=== PATIENT | female | born 1930 | race Caucasian/White ===

== ENCOUNTER 2017-02-03 06:44 | Emergency (ER) | payer MEDICARE ==
[~2017-02-03] VITALS: Ht 167.6 cm; Wt 77.3 kg
[~2017-02-03 06:44] MED LIST: ARIMIDEX1 MG PO; ASPIRIN 32325 MG/TAB PO; B-121000 MCG; CALCIUM 600 PLU1 TAB; CALCIUM 600600 M2; CENTRUM1 TAB; COLACE 100100 MG/CAP PO; COUMADIN 77.5 MG/TAB PO; COZAAR100 MG PO; FERROUS SU325 MG/TAB PO; FISH OIL1 IU; FOLIC ACID 40400 MCG PO; HYZAAR 25 MG-101 TAB; HYZAAR 25 MG-101 TAB PO; LEVOTHYROXINE; LORTAB 5/500 501 TAB; LOTRISONE CREAM15 GM; OMEGA 31000 MG PO; SYNTHROID 0.10.15 MG PO; SYNTHROID0.125 MG/T; TYLENOL 500MG500 MG PO; TYLENOL ARTHRI650 M1; ULTRAM 50MG TAB50 MG PO; VITAMIN B12500 MCG; VITAMIN C PUR1000 MG
[2017-02-03 06:52] VITALS: TEMP 97.5
[2017-02-03] MEDS ORDERED: VITAMINC1000TA PO (07:04)
[2017-02-03] MEDS ORDERED: MULTIPLE VITAMI1 CAP PO (07:04)
[2017-02-03] MEDS ORDERED: SYNTHROID0.2 MG/TAB PO (07:05)
[2017-02-03] MEDS ORDERED: LIPITOR20 MG PO (07:06)
[2017-02-03] MEDS ORDERED: B-12 100 MCG PO (07:07)
[2017-02-03 08:21] LABS: BASO # 0.1 (0.0-0.2); BASO % 0.6 % (0.0-2.0); EOS # 0.1 (0.0-0.7); EOS % 0.9 % (0-4.0); GRAN # 9.1 (1.4-6.5); GRAN % 83.4 % (42.2-75.2); HEMATOCRIT 41.3 % (37.0-47.0); HEMOGLOBIN 13.3 g/dl (12.5-16.0); MEAN CELL VOLUME 96 fl (80.0-100.0); MEAN CORPUSCULAR HEMOGLOBIN 31 pg (27.0-31.0); MEAN CORPUSCULAR HGB CONC 32 g/dl (33.0-37.0); MEAN PLATELET VOLUME 9.9 fl (7.4-10.4); MONO # 0.6 (0.1-0.6); MONO % 5.7 % (1.7-9.3); PLATELET COUNT 271 K/mm3 (130-400); RED BLOOD COUNT 4.32 M/mm3 (4.10-5.30); REDCELL DISTRIBUTION WIDTH-CV 14.3 % (11.5-14.5); WHITE BLOOD COUNT 10.9 K/mm3 (4.8-10.8)
[2017-02-03 08:37] LABS: PH 6 (5-8); SQUAMOUS EPITHELIAL 0-2 /hpf; URINE APPEARANCE Clear; URINE BACTERIA None Seen /hpf; URINE BILIRUBIN Negative (NEGATIVE); URINE BLOOD Negative (NEGATIVE); URINE COLOR Straw; URINE GLUCOSE Negative (NEGATIVE); URINE KETONE Negative (NEGATIVE); URINE UROBILINOGEN Negative (NEGATIVE)
[2017-02-03 08:54] LABS: ADJUSTED CALCIUM 9.7 mg/dL (8.4-10.2); ALANINE AMINOTRANSFERASE 37 U/L (9-52); ALBUMIN 3.7 gm/dL (3.5-5.0); ALKALINE PHOSPHATASE 130 U/L (50-136); ANION GAP 9 mmol/L (7-16); BILIRUBIN,TOTAL 0.8 mg/dL (0.0-1.0); BLOOD UREA NITROGEN 17 mg/dL (7-17); CALCIUM 9.5 mg/dL (8.4-10.2); CARBON DIOXIDE 30 mmol/L (22-30); CHLORIDE 101 mmol/L (98-107); GLUCOSE 98 mg/dL (74-106); POTASSIUM 4.1 mmol/L (3.4-5.0); SODIUM 140 mmol/L (137-145)
[2017-02-03 08:59] LABS: TROPONIN-I < 0.012 ng/mL (0.000-0.034)
[2017-02-03 10:59] VITALS: BP 142/63; PULSE 74
== END 2017-02-03 10:59 | disposition home or self-care (01) ==
LOC: COL.ER 06:44
PROVIDERS: Nurse Practitioner
DX: R42 Dizziness and giddiness (principal); I10 Essential (primary) hypertension; I25.10 Atherosclerotic heart disease of native coronary artery without angina pectoris; Z95.5 Presence of coronary angioplasty implant and graft; E03.9 Hypothyroidism, unspecified; R26.81 Unsteadiness on feet
CPT/HCPCS: J7030

== ENCOUNTER 2017-03-27 06:18 | Day surgery (SDC) | payer MEDICARE ==
[~2017-03-27] VITALS: Ht 167.6 cm; Wt 77.1 kg
[~2017-03-27 06:18] MED LIST changes: +B-12 100 MCG PO; +LIPITOR20 MG PO; +MULTIPLE VITAMI1 CAP PO; +SYNTHROID0.2 MG/TAB PO; +VITAMINC1000TA PO
[2017-03-27 07:04] VITALS: BP 154/65; PULSE 77; TEMP 97.5
[2017-03-27] MEDS ORDERED: SYNTHROID 0.0.025 MG PO (07:17)
[2017-03-27] MEDS ORDERED: TYLENOL 8 HR PO (07:29)
[2017-03-27 09:06] VITALS: BP 131/61; PULSE 75
[2017-03-27] MEDS ORDERED: NORCO 325 MG-51 TAB PO (09:19)
[2017-03-27 09:21] VITALS: BP 128/58; PULSE 72
[2017-03-27 09:36] VITALS: BP 137/56; PULSE 69
[2017-03-27 09:51] VITALS: BP 135/58; PULSE 75
== END 2017-03-27 10:15 | disposition home or self-care (01) ==
LOC: SDCO 06:18
DX: G56.01 Carpal tunnel syndrome, right upper limb (principal); M19.90 Unspecified osteoarthritis, unspecified site; I10 Essential (primary) hypertension; E78.5 Hyperlipidemia, unspecified; E07.9 Disorder of thyroid, unspecified; Z85.3 Personal history of malignant neoplasm of breast; Z85.42 Personal history of malignant neoplasm of other parts of uterus; Z79.899 Other long term (current) drug therapy
CPT/HCPCS: J0690; J2704; J3010; J7120